=== PATIENT | female | born 1975 | race Two or more races ===

== ENCOUNTER 2024-11-29 09:38 | Outpatient (RCR) | payer MEDICAID, SELFPAY ==
--- NOTE | 2024-11-29 12:58 | CTCCONSULT_ITS ---
Patient: LAZARO ANGULO : 1975 MR#: [id number] Page 2 of 2 CONSULTATION NOTE DATE OF CONSULTATION: 11/29/2024 NAME: LAZARO ANGULO ACCOUNT: [id number] : 1975 AGE: 49 REFERRING PHYSICIAN: Dashawn Avendaño MD PRIMARY PHYSICIAN: REASON FOR VISIT: ONCOLOGY HISTORY: DIAGNOSIS: Iron deficiency anemia, unspecified [ICD10] D50.9 DATE OF DIAGNOSIS: 11/29/2024 STAGE/TNM: TREATMENT HISTORY: Care?Plan Start?Date Cycle Day Intent FERRlecit?she 11/29/2024 1 7 Palliative HISTORY OF PRESENT ILLNESS: 49-year-old female with heavy mennorhagia .periods are lasting for 2 weeks . She is feeling tired and lethargic . She have sriram loss .. OTHER MEDICAL HISTORY/CONDITIONS: anemia?bronchitis?chicken?pox bladder sling 2023 here 3 sections bilat tubal ligation FAMILY HISTORY: Children:?paternal??uncle??colon Cancer History:?paternal gandmother colon maternal grandmother ov SOCIAL HISTORY: Occupational?History:?unemployed Education?Level:?Completed 10th grade Marital?Status:? 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 Iron (ferrous sulfate) - 325 mg Twice a Day 2. Chataignier - 7.5 mg Twice a Day 3. Paxil - 20 mg Daily 4. Vitamin C - As directed Medications Last Reconciled by Rachel Terrazas LVN on 11/29/2024 ALLERGIES: No Known Drug Allergies REVIEW OF SYSTEMS: A complete 14-point review of systems was performed and is negative except as noted in interval history. PHYSICAL EXAMINATION: VITAL SIGNS: Temperature?99.4, B/P?134/71, Height?62?inches Weight?210?lbs PAIN: 7 - Between severe and very severe pain ECOG Performance Status: 1 - Symptomatic; ambulatory; restricted in strenuous activity GENERAL APPEARANCE: Appears well, in no apparent distress, appropriately interactive. HEENT: Normocephalic, no temporal wasting, normal conjunctiva, no scleral icterus, normal hearing, lips without lesions, neck normal range of motion. CARDIOVASCULAR: Not assessed. PULMONARY: Normal respiratory effort, no respiratory distress or use of accessory muscles, speaking in full sentences, no tachypnea. EXTREMITIES: No pedal edema or cyanosis. SKIN: Normal skin appearance. NEUROLOGIC: Alert and oriented x4. PSHYCHIATRIC: Appropriate affect, mood normal, behavior normal, intact thought and speech. LABORATORY DATA: I have personally reviewed and interpreted each of the patient?s relevant lab tests, abnormal findings are below: Date ASSESSMENT/PLAN: Iron deficiency anemia Iron studies are confirmed Will start on IV iron as patient has been on oral therapy and she is symptomatic and had iron studies also show deficiency Advised to do blood work before infusion Feracit ordered Consented after discussing side effects of IV therapy as well as benefits. Patient advised to hold oral iron as she is getting severely constipated with it. Gynecology dfollow up for menorrhagia ORDERS: Order # Description [id number] Comprehensive Metabolic Panel - 12 + CBC with Auto Diff [id number] Ferritin + Iron Panel + Vitamin B-12 + Folic Acid; Serum + Lactate Dehydrogenase (LDH) + Assay Of Haptoglobin Quant [id number] MD Follow Up 3 Months RETURN TO CLINIC: 3 months after completing infusions BILLING AND COMPLIANCE: I reviewed external records from providers outside my specialty as summarized above. I spent a total of 50 minutes on this patient?s care on the day of their visit excluding time spent related to any billed procedures. This time includes time spent with the patient as well as time spent documenting in the medical record, reviewing patients records and tests, obtaining history, placing orders, communicating with other healthcare professionals, counseling the patient, family or caregiver, and/or care coordination for the diagnoses above. Electronically Signed by: Dashawn Avendaño MD T: 12:56 PM CC: PCP: Referring: Dashawn Avendaño This document was completed utilizing speech recognition software. Grammatical errors, random word insertions, pronoun errors, and incomplete sentences are an occasional consequence of this system due to software limitations, ambient noise, and hardware issues. Any formal questions or concerns about the content, text or information contained within the body of this dictation should be directly addressed to the provider for clarification.
== END 2024-12-13 23:59 | disposition home or self-care (01) ==
LOC: SCTC 09:38
PROVIDERS: PCP Nurse Practitioner; Referring Provider Internal Medicine Hematology & Oncology; Visit Provider Internal Medicine Hematology & Oncology
DX: D50.9 Iron deficiency anemia, unspecified (principal)
CPT/HCPCS: 99213; G0463

== ENCOUNTER 2025-01-12 13:34 | Outpatient (RCR) | payer MEDICAID, SELFPAY | END 2025-01-12 23:59 | disposition home or self-care (01) | LOC: SCTC 13:34 | PROVIDERS: PCP Nurse Practitioner; Referring Provider Nurse Practitioner; Visit Provider Internal Medicine Hematology & Oncology | DX: D50.9 Iron deficiency anemia, unspecified (principal) | CPT/HCPCS: 96365; 96375; J2916; J2919; J3490; J7040; J7050 ==

== ENCOUNTER 2025-02-01 10:57 | Outpatient (AMB) | payer MEDICAID, SELFPAY ==
[2025-02-01 11:07] VITALS: BP 123/85; PULSE 92; RESP 18; TEMP 36.2; O2SAT 98; BMI 38.3
--- NOTE | 2025-02-01 11:07 | AMB.OBVISIT ---
Vital Signs 02/01/25 11:07 Height 1.57 m Height Method Stated Weight 95.056 kg Weight Measurement Method Standing Scale BMI 38.3 BP 123/85 H Blood Pressure Source Automatic Cuff Blood Pressure Location Left Upper Arm Position Sitting Respiration 18 Pulse 92 Pulse Source Monitor Temp 97.2 F Temp Source Oral Pulse Oximetry (%) 98 Oxygen Delivery Method Room Air Allergies/Home Meds Allergies & Medications Allergies No Known Allergies Allergy (Verified 02/01/25 11:09) Medication Reconciliation cyclobenzaprine 5 mg tablet 5 mg PO TID PRN Spasms 01/05/24 [History Confirmed 02/01/25] escitalopram oxalate 10 mg tablet 10 mg PO DAILY 01/05/24 [History Confirmed 02/01/25] hydrocodone 7.5 mg-acetaminophen 325 mg tablet 1 tab PO Q12H PRN Pain 01/05/24 [History Confirmed 02/01/25] ibuprofen 600 mg tablet 800 mg PO Q6H PRN Pain 01/05/24 [History Confirmed 02/01/25] pregabalin 75 mg capsule 75 mg PO BID 01/05/24 [History Confirmed 02/01/25] ciprofloxacin HCl 500 mg tablet (Cipro) 500 mg PO BID #14 tabs 03/02/24 [Rx Confirmed 02/01/25] hydrocodone 5 mg-acetaminophen 325 mg tablet 1 tab PO Q6H PRN pain #30 tabs 03/02/24 [Rx Confirmed 02/01/25] Intake Visit Data Collection New Patient or Established: Established Patient (seen at [facility] within 3 years) Reason for Visit:: HYST CONSULT 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 1. Little interest or pleasure in doing things: not at all 2. Feeling down, depressed, or hopeless: not at all Total score: 0 PHQ-9 3. Trouble falling or staying asleep, or sleeping too much: Not at all 4. Feeling tired or having little energy: Not at all 5. Poor appetite or overeating: Not at all 6. Feeling bad about yourself - or that you are a failure or have let yourself or your family down: Not at all 7. Trouble concentrating on things, such as reading the newspaper or watching television: Not at all 8. Moving or speaking so slowly that other people could have noticed? - Or the opposite - being so fidgety or restless that you have been moving around a lot more than usual: not at all 9. Thoughts that you would be better off or of hurting yourself in some way: Not at all Total score: 0 If you checked off any problems, how difficult have these problems made it for you to do your work, take care of things at home, or get along with other people?: not difficult at all Source: Developed by Drs. Indio Haskins, Loreta Crooks, Darryn Mcdonald and colleagues, with an educational jamal from [employer]. 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 Medical History Past Medical History: No Hx Neurological Disorders, No Hx Cardiac Disorders, No Hx Cancer, Yes Hx Blood Disorders, Yes Hx Anemia, Yes Hx Gastrointestinal Disorders, No Hx Renal Disease, No Hx Diabetes Mellitus Type 1, No Hx Diabetes Mellitus Type 2 and Yes Hx Tubal Ligation Office Procedures OB Clinic LOC & Office Proc's Nursing/Assessment Patient Status: Established Patient OB Clinic Nursing Assessment: Medication Reconciliation, Update PMH in EMR and Vital Signs OB Clinic Coordination of Care: Education Complex Pt/Fam, Consent,records obtained, informed consent, Education Simp Pt/Fam and Staff clarify orders Established Patient Charge Established Patient Point Assignment: 80 Established Patient Point Charge: EP Level 3 (80-115)
--- NOTE | 2025-02-01 11:54 | GYNCLNT_ITS ---
Vital Signs 02/01/25 11:07 02/01/25 11:59 Height 1.57 m Height Method Stated Weight 95.056 kg Weight Measurement Method Standing Scale BMI 38.3 BP 123/85 H 123/85 H Blood Pressure Source Automatic Cuff Blood Pressure Location Left Upper Arm Position Sitting Respiration 18 18 Pulse 92 92 Pulse Source Monitor Temp 97.2 F 97.2 F Temp Source Oral Pulse Oximetry (%) 98 98 Oxygen Delivery Method Room Air Allergies/Home Meds Allergies & Medications Allergies No Known Allergies Allergy (Verified 02/01/25 13:23) Medication Reconciliation cyclobenzaprine 5 mg tablet 5 mg PO TID PRN Spasms 01/05/24 [History Confirmed 03/02/24] escitalopram oxalate 10 mg tablet 10 mg PO DAILY 01/05/24 [History Confirmed 03/02/24] hydrocodone 7.5 mg-acetaminophen 325 mg tablet 1 tab PO Q12H PRN Pain 01/05/24 [History Confirmed 03/02/24] ibuprofen 600 mg tablet 800 mg PO Q6H PRN Pain 01/05/24 [History Confirmed 03/02/24] pregabalin 75 mg capsule 75 mg PO BID 01/05/24 [History Confirmed 03/02/24] ciprofloxacin HCl 500 mg tablet (Cipro) 500 mg PO BID #14 tabs 03/02/24 [Rx] hydrocodone 5 mg-acetaminophen 325 mg tablet 1 tab PO Q6H PRN pain #30 tabs 03/02/24 [Rx] Intake Visit Data Collection New Patient or Established: Established Patient (seen at [facility] within 3 years) Reason for Visit:: Hysterectomy consult for severe menorrhagia Seen by Clinical Staff ONLY (RN/MA): No Service Center Representative Required: No Do You Feel Safe at Home: Yes Authorities Contacted: N/A PCP or OBGYN visit in last 3 months: Yes Hx Now: No Are you currently on any form of Control: No Pain Present Currently: No Pain Scale Used: Ha-Masters/Numerical Pain scale:: 0 Smoking Status Smoking Status: Former smoker Transportation Job Titles history Transportation Job Titles History Menstrual regularity: regular Flow: normal Monthly: Yes Age at menarche: 14 Menopausal: No Currently sexually active: Yes 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 1. Little interest or pleasure in doing things: not at all 2. Feeling down, depressed, or hopeless: not at all Total score: 0 PHQ-9 3. Trouble falling or staying asleep, or sleeping too much: Not at all 4. Feeling tired or having little energy: Not at all 5. Poor appetite or overeating: Not at all 6. Feeling bad about yourself - or that you are a failure or have let yourself or your family down: Not at all 7. Trouble concentrating on things, such as reading the newspaper or watching television: Not at all 8. Moving or speaking so slowly that other people could have noticed? - Or the opposite - being so fidgety or restless that you have been moving around a lot more than usual: not at all 9. Thoughts that you would be better off or of hurting yourself in some way: Not at all Total score: 0 If you checked off any problems, how difficult have these problems made it for you to do your work, take care of things at home, or get along with other people?: not difficult at all Source: Developed by Drs. Indio Haskins, Loreta Crooks, Darryn Mcdonald and colleagues, with an educational jamal from [employer]. Depression screen completed yes Social History Living Situation History Marital Status: Lives With: Family Housing: Apartment Tobacco History Smoking Status: Former smoker Second Hand Smoke Exposure: No Alcohol History Alcohol Intake: Current Alcohol Intake Frequency: A Few Times a Week Domestic Abuse History Do You Feel Safe at Home: Yes History of Present Illness HPI Narrative Chief Complaint Hysterectomy consult for severe menorrhagia History of Present Illness Abbie Pagan is a 49-year-old female referred from [facility] for a hysterectomy consult due to severe menorrhagia. She has a complex medical history including chronic pelvic pain, excessive and frequent menstruation, and a history of bladder sling surgery for gross stress incontinence. The patient reports her last menstrual period was on January 14, 2024, with a usual 3-day flow and a 28-day cycle. She experienced menarche at age 10 and had her first child at 16. Ms. Pagan has undergone surgical sterilization in the past. Her current chief complaint is severe menorrhagia, which has led to her request for a hysterectomy. Dr. Greer, her insurance verification representative at [facility], has confirmed the need for this surgery. A pelvic ultrasound revealed an enlarged uterus with a 2.5 cm posterior leiomyo ma and a 0.6 cm dilated endocervical cyst, which may be contributing to her symptoms. The patient underwent bladder surgery by Dr. Tamayo last year, which successfully resolved her previous bladder issues. The proposed hysterectomy will involve removing the uterus and cervix while preserving the ovaries to avoid menopausal symptoms. The surgery is planned to use the same incision from previous surgeries. Ms. Pagan's extensive problem list includes various conditions that may impact her overall health and surgical candidacy, such as vitamin D deficiency, hyperlipidemia, iron deficiency, moderate major depression, generalized anxiety disorder, reactive airway disease, chronic respiratory failure, and chronic low back pain. She also has a history of cigarette smoking, which could affect her surgical risk and recovery. Obstetric History - GPAL: G1+ P1+ A0 L1+ - history: - First child born when patient was 16 years old Medical History - Moderate major depression - Generalized anxiety disorder - Dysthymia - Depressive disorder - Insomnia - Bacterial vaginosis - Chlamydial infection - Vitamin D deficiency - Hyperlipidemia - Iron deficiency - Bronchitis - Reactive airway disease - History of atelectasis - Chronic respiratory failure - Constipation - Chronic pelvic pain - Female alopecia - Lumbar spondylosis - Cervical spinal stenosis - Cervical radiculopathy - Chronic low back pain - History of flank pain Surgical History - Bladder sling surgery for gross stress incontinence - Bladder surgery by Dr. Tamayo last year - Surgical sterilization - (at least one) Social History - Substance Use: Current cigarette smoker - Obstetric History: Menarche at age 10, first child at age 16, status post surgical sterilization Review of Systems General: Positive for insomnia. Gastrointestinal: Positive for constipation. Genitourinary: Positive for excessive and frequent menstruation, menorrhagia, abnormal uterine bleeding, perimenopausal bleeding. Musculoskeletal: Positive for chronic low back pain. Psychiatric: Positive for depression, anxiety. Exam General Limitations: no limitations General Appearance: alert, in no apparent distress and comfortable Head Head exam: atraumatic and normocephalic Eye Eye exam: Present normal appearance, PERRL and EOMI Neck Neck exam: Present normal inspection and full ROM Chest Chest inspection: Present normal inspection and symmetric chest wall rise; Absent tenderness Resp Respiratory exam: Present normal lung sounds bilaterally; Absent respiratory distress Card Cardiovascular exam: Present regular rate and normal rhythm Abdominal Abdominal exam: Present soft and normal bowel sounds; Absent tenderness, guarding, rebound or rigidity Neuro Neurological exam: Present alert and oriented X3 Psych Psychiatric exam: Present normal affect Results Objective Imaging: - Pelvic ultrasound: - Enlarged uterus - 2.5 cm posterior leiomyoma - 0.6 cm dilated endocervical cyst Office Procedures OB Clinic LOC & Office Proc's Nursing/Assessment Patient Status: Established Patient OB Clinic Nursing Assessment: Medication Reconciliation, Update PMH in EMR and Vital Signs OB Clinic Coordination of Care: Education Complex Pt/Fam, Consent,records obtained, informed consent, Education Simp Pt/Fam and Staff clarify orders Established Patient Charge Established Patient Point Assignment: 80 Established Patient Point Charge: EP Level 3 (80-115) Assessment & Plan Diagnosis / Problem List (1) Abnormal uterine and vaginal bleeding, unspecified: Status: Acute (2) Intramural leiomyoma of uterus: Status: Acute (3) Excessive and frequent menstruation with irregular cycle: Status: Acute (4) Other specified noninflammatory disorders of cervix uteri: Status: Acute (5) Female stress incontinence: Status: Acute (6) Major depressive disorder, recurrent, moderate: Status: Acute (7) Generalized anxiety disorder: Status: Acute (8) Vitamin D deficiency, unspecified: Status: Acute (9) Hyperlipidemia, unspecified: Status: Acute (10) Unspecified asthma, uncomplicated: Status: Acute (11) Spondylosis without myelopathy or radiculopathy, lumbar region: Status: Acute (12) Personal history of nicotine dependence: Status: Acute Plan Abbie Pagan, 49-year-old female, referred for hysterectomy consult due to severe menorrhagia, with history of multiple gynecological and medical conditions. Severe menorrhagia Assessment: Patient presents with severe menorrhagia, requesting hysterectomy. Pelvic ultrasound revealed an enlarged uterus with a 2.5 cm posterior leiomyoma and a 0.6 cm dilated endocervical cyst. Dr. Greer from [facility] confirmed the need for surgery. Patient's last menstrual period was on January 14, 2024, with a usual 3-day flow and a 28-day cycle. The severity of symptoms and imaging findings support the decision for surgical intervention. Plan: - Perform hysterectomy (removal of uterus and cervix, preserving ovaries) - Utilize previous incision for the procedure - Schedule surgery within a month, pending insurance approvals - Obtain pre-surgery clearance from primary care physician - Order pre-operative EKG - Order diabetes test for anesthesia safety - Schedule pre-op appointment - Provide written instructions for surgery preparation - Advise one month of rest post-surgery, with gradual return to normal activities - Patient informed about preservation of ovaries to avoid menopausal symptoms - Informed consent obtained: discussed surgical approach, recovery expectations, and preservation of ovaries Multiple comorbidities Assessment: Patient has a complex medical history including bacterial vaginosis, chlamydial infection, vitamin D deficiency, hyperlipidemia, iron deficiency, moderate major depression, generalized anxiety disorder, dysthymia, depressive disorder, insomnia, bronchitis, reactive airway disease, history of atelectasis, chronic respiratory failure, constipation, chronic pelvic pain, female alopecia, lumbar spondylosis, cervical spinal stenosis, cervical radiculopathy, chronic low back pain, cigarette smoking, and history of flank pain. These conditions may impact surgical planning and post-operative care. Plan: - Coordinate with primary care physician (Hilaria) for pre-operative clearance and management of comorbidities - Encourage patient to ask questions and address concerns before surgery History of urinary incontinence Assessment: Patient has a history of gross stress incontinence, which was treated with a bladder sling procedure by Dr. Tamayo last year. The issue has reportedly resolved post-surgery. Plan: - Monitor for any recurrence of urinary symptoms post-hysterectomy
[2025-02-01 11:59] VITALS: BP 123/85; PULSE 92; RESP 18; TEMP 36.2; O2SAT 98
== END 2025-02-01 11:31 | disposition home or self-care (01) ==
LOC: HODSOBC 10:57
PROVIDERS: PCP Nurse Practitioner; Referring Provider Nurse Practitioner; Supervising Provider Obstetrics & Gynecology; Visit Provider Obstetrics & Gynecology
DX: D25.1 Intramural leiomyoma of uterus (principal); N92.0 Excessive and frequent menstruation with regular cycle; N88.8 Other specified noninflammatory disorders of cervix uteri; N39.3 Stress incontinence (female) (male); F33.8 Other recurrent depressive disorders; F41.1 Generalized anxiety disorder; E55.9 Vitamin D deficiency, unspecified; E78.5 Hyperlipidemia, unspecified; J45.909 Unspecified asthma, uncomplicated; M47.816 Spondylosis without myelopathy or radiculopathy, lumbar region; M48.02 Spinal stenosis, cervical region; M54.12 Radiculopathy, cervical region; Z98.890 Other specified postprocedural states; Z98.51 Tubal ligation status; Z87.891 Personal history of nicotine dependence; Z79.899 Other long term (current) drug therapy
CPT/HCPCS: 99213; G0463

== ENCOUNTER 2025-02-09 13:08 | Outpatient (RCR) | payer MEDICAID, SELFPAY | END 2025-02-12 23:59 | disposition home or self-care (01) | LOC: SCTC 13:08 | PROVIDERS: PCP Nurse Practitioner; Referring Provider Nurse Practitioner; Visit Provider Internal Medicine Hematology & Oncology | DX: D50.9 Iron deficiency anemia, unspecified (principal); N92.0 Excessive and frequent menstruation with regular cycle | CPT/HCPCS: 96365; 96375; J2916; J2919; J3490; J7040; J7050 ==

== ENCOUNTER 2025-02-23 13:19 | Outpatient (RCR) | payer MEDICAID, SELFPAY | END 2025-03-14 23:59 | disposition home or self-care (01) | LOC: SCTC 13:19 | PROVIDERS: PCP Nurse Practitioner; Referring Provider Nurse Practitioner Family; Visit Provider Nurse Practitioner Family | DX: D50.9 Iron deficiency anemia, unspecified (principal) | CPT/HCPCS: 96365; 96375; A4216; J2916; J2919; J3490; J7040; J7050 ==

== ENCOUNTER 2025-03-03 06:50 | Inpatient (IN) | payer MEDICAID, SELFPAY ==
[2025-03-02 09:16] VITALS: BMI 36.3
[2025-03-02 10:20] LABS: Basophils # (Auto) 0.1 Thou/mm3 (0.0-0.2); Basophils % (Auto) 1 % (0-2.5); Eosinophils # (Auto) 0.1 Thou/mm3 (0.0-0.5); Eosinophils % (Auto) 1 % (0-10); Hematocrit 43.1 % (36.0-46.0); Hemoglobin 13.8 g/dL (12.0-16.0); Immature Granulocytes % (Auto) 0 % (0-0); Immature Granulocytes Auto 0.03 Thou/mm3 (0.00-0.00); Lymphocytes # (Auto) 1.8 Thou/mm3 (1.0-4.8); Lymphocytes % (Auto) 25 % (10-50); Mean Corpuscular Volume 84 fL (80-100); Monocytes # (Auto) 0.5 Thou/mm3 (0.0-0.8); Monocytes % (Auto) 7 % (0-12); Neutrophils % (Auto) 67 % (37-80); Nucleated Red Blood Cell % 0 /100 WBC (0); Platelet Count 235 Thou/mm3 (140-440); RDW Standard Deviation 63.7 fL (36.4-46.3); Red Blood Count 5.11 Miln/mm3 (4.00-5.20); White Blood Count 7.5 Thou/mm3 (3.6-11.0)
[2025-03-02 10:26] LABS: HCG,Qualitative Serum Negative
[2025-03-02 10:32] LABS: Alanine Aminotransferase 17 U/L (10-49); Albumin, Serum 4.5 gm/dL (3.5-5.0); Alkaline Phosphatase 85 U/L (46-116); Anion Gap 7 (7-16); Aspartate Amino Transferase 18 U/L (0-34); BUN/Creatinine Ratio 10 Ratio (12-20); Bilirubin,Total 0.3 mg/dL (0.3-1.2); Blood Urea Nitrogen 7 mg/dL (9-23); Calcium 9.4 mg/dL (8.3-10.6); Calcium (Corrected) 9.4 mg/dL (8.5-10.1); Carbon Dioxide 26.3 mMol/L (20.0-31.0); Chloride 106 mMol/L (98-107); Creatinine (Component) 0.7 mg/dL (0.6-1.3); Estimated Creatinine Clearance 111.8 mL/min (>60); Globulin 2.3 gm/dL (2.3-3.5); Glucose 93 mg/dL (74-106); Osmolality,Calculated 275 (275-295); Potassium 4.1 mMol/L (3.4-5.1); Sodium 139 mMol/L (136-145); Total Protein 6.8 gm/dL (5.7-8.2); eGFR > 60 See Note
[2025-03-03] VITALS (19 sets, daily range): BP systolic 103–159; BP diastolic 52–97; PULSE 66–89; RESP 12–22; TEMP 36.2–36.9; O2SAT 93–99; BMI 37.1; BMI 38.6
--- NOTE | 2025-03-03 11:08 | PD.GYNPROC ---
Operative Note - FINANCIAL COACH Procedure Date of procedure: 03/03/25 Procedure Performed: Total abdominal hysterectomy and bilateral salpingectomy Indication: 49-year-old with menorrhagia and leiomyoma of uterus Anesthesia type: General Procedure description: Informed consent was obtained and the patient was taken to the operating room.? Identity was confirmed by double identifiers and she was placed on the operating table.? General anesthesia was administered and the patient was secured and positioned in the supine position.? The abdomen and perineum were prepped in the usual sterile fashion, a Goldberg catheter was placed to continuous drainage and sterile drapes were applied.? A timeout procedure was completed. A Pfannenstiel skin incision was made with a scalpel and incision was carried down through the subcutaneous fat up to the rectus fascia.? Rectus fascia was incised on either side of the midline and the fascial incisions were extended bilaterally using Burgess scissors.? The rectus fascia was now grasped using a pair of Pieter's clamps and dissected off the anterior surface of the rectus muscle.? The same procedure was repeated on the inferior aspect.? The rectus bellies were now in the midline and the peritoneum was identified and entered bluntly.? The peritoneal opening was gently stretched to create adequate access into the pelvic cavity.? Kojo O-ring retractor was placed and the bowel was packed out of the operative field.? The uterus was grasped using a double-tooth tenaculum.? Significant amount of bladder adhesion was noted and about 40 minutes of dissection was performed to divide the bladder adhesion to gain access to the uterovesical peritoneum.? The uterus was placed under traction and dissection was started on the right side.? The utero-ovarian ligament was was divided.? The fallopian tube was dissected off separately.? The round ligament was now divided and the anterior and posterior leaves of the broad ligament was .? The anterior leaf was dissected up to the bladder reflection to create the bladder flap.? The posterior leaf was dissected down all the way to the uterosacral ligament.? Subsequent bites were taken down the size of the uterus until the uterine artery was skeletonized, occluded and divided and the cervix was reached.? The same procedure was repeated on the contralateral side.? Once the level of the cervix was reached a pair of Manda clamps were placed across the cervix and the uterus was amputated and handed over for pathological exam.? The vaginal angles were tagged using a pair of 0 Vicryl sutures.? The vaginal cuff was closed using 0 Vicryl in a running fashion.? The angles were tied together to reinforce the uterosacral ligaments.? Multiple localized areas of hemorrhage were noted and [id number] sutures were applied to compress the bleeding points using 3-0 and 2-0 Vicryl. Eventually the cuff was copiously irrigated and adequate hemostasis was noted.? A layer of Surgicel was placed for adequate hemostasis.? All instruments were now withdrawn.? The bowel packing was removed.? The Kojo retractor was removed.?The peritoneum was now closed using 2-0 Vicryl, the rectus muscles were reapproximated using 3-0 Vicryl.? The rectus fascia was closed using 0 Vicryl in a running fashion.? The subcutaneous layer was copiously irrigated.? The subcutaneous fat was closed using 3 0 plain and the skin was closed using 4-0 Monocryl.? The skin was thoroughly cleaned and a sterile pressure dressing was applied.? The patient was undraped, general anesthesia was reversed and she was transferred to the recovery room in a stable and awake condition. Patient tolerated the entire procedure well.? No acute complications were encountered during the procedure.? All instrument, sponge and lap counts were correct x2 Estimated blood loss (ml): 200 Complications: none Surgical staff Operation Date: 03/03/25 09:00 Case Staff Anesthesiologist: Amadeo Cruz RNelectric locomotive crane operator: Prakash Stevenson Diagnosis Discharge Diagnosis (1) Intramural leiomyoma of uterus: Status: Acute (2) Abnormal uterine and vaginal bleeding, unspecified: Status: Acute (3) Personal history of nicotine dependence: Status: Acute (4) Unspecified asthma, uncomplicated: Status: Acute (5) Generalized anxiety disorder: Status: Acute Problem List Completed Was Problem List Reviewed/Reconciled?: Yes
[2025-03-03] MEDS: PIPER/TAZO 3.375 GM PREMIX 3.375 GM/50 ML BAG IV ×2 (11:51→20:13)
[2025-03-03] MEDS: SODIUM CHLORIDE 0.9% 1000 ML 1,000 ML 200 ML IV ×3 (11:52→22:10)
[2025-03-03] MEDS: KETOROLAC INJ 30 MG/ML VIAL 15 MG IVP (11:55)
[2025-03-03] MEDS: HYDROmorphone INJ 2 MG/ML VIAL 0.5 MG IVP ×4 (11:57→12:38)
[2025-03-03] MEDS: MIDAZOLAM INJ 1 MG/ML VIAL 2 ML IVP (12:44)
--- NOTE | 2025-03-03 12:54 | SUR.PHASEI ---
pt lying in bed with eyes closed, breathing unlabored, dressing to abdomen clean, dry, and intact, report from Gilles PA
--- NOTE | 2025-03-03 13:25 | SUR.PHASEI ---
report to Gilles PA
[2025-03-03] MEDS: HYDROmorphone 1 MG/ML PCA SYRINGE 30ML PCA (13:41)
--- NOTE | 2025-03-03 14:10 | SUR.PHASEI ---
pt asleep but responds to voice, breathing unlabored on 2l nc. v/s stable. pt dressing to abd cdi. griggs catheter in place. report called to Patsy PA. pt will be transferred to room at this time.
[2025-03-03] MEDS: Milk Of Magnesia Susp 30 ML UDC PO (15:46)
[2025-03-03] MEDS: ACETAMINOPHEN IVPB 1,000 MG/100 ML VIAL 250 MG IV ×2 (17:16→23:45)
[2025-03-03] MEDS: PREGABALIN 75 MG CAPSULE PO (20:18)
[2025-03-04] VITALS (8 sets, daily range): BP systolic 105–144; BP diastolic 62–80; PULSE 61–110; RESP 16–21; TEMP 36.1–36.6; O2SAT 93–96
[2025-03-04] MEDS: PIPER/TAZO 3.375 GM PREMIX 3.375 GM/50 ML BAG IV (02:42)
[2025-03-04] MEDS: SODIUM CHLORIDE 0.9% 1000 ML 1,000 ML 200 ML IV (02:58)
[2025-03-04] MEDS: ACETAMINOPHEN IVPB 1,000 MG/100 ML VIAL 250 MG IV ×2 (05:26→11:02)
[2025-03-04 05:50] LABS: Basophils % (Auto) 0 % (0-2.5); Eosinophils % (Auto) 0 % (0-10); Hematocrit 36.3 % (36.0-46.0); Hemoglobin 11.8 g/dL (12.0-16.0); Immature Granulocytes % (Auto) 1 % (0-0); Immature Granulocytes Auto 0.07 Thou/mm3 (0.00-0.00); Lymphocytes # (Auto) 0.8 Thou/mm3 (1.0-4.8); Lymphocytes % (Auto) 7 % (10-50); Mean Corpuscular HGB Conc 32.5 g/dl (31.0-37.0); Mean Corpuscular Hemoglobin 27.8 pg (25.0-35.0); Mean Corpuscular Volume 85 fL (80-100); Monocytes # (Auto) 0.8 Thou/mm3 (0.0-0.8); Monocytes % (Auto) 6 % (0-12); Neutrophils # (Auto) 10.2 Thou/mm3 (1.8-7.7); Neutrophils % (Auto) 86 % (37-80); Nucleated Red Blood Cell % 0 /100 WBC (0); Platelet Count 211 Thou/mm3 (140-440); RDW Standard Deviation 64.7 fL (36.4-46.3); Red Blood Count 4.25 Miln/mm3 (4.00-5.20); White Blood Count 11.8 Thou/mm3 (3.6-11.0)
[2025-03-04 06:03] LABS: Anion Gap 6 (7-16); BUN/Creatinine Ratio 9 Ratio (12-20); Blood Urea Nitrogen 7 mg/dL (9-23); Calcium 8.3 mg/dL (8.3-10.6); Carbon Dioxide 21.8 mMol/L (20.0-31.0); Chloride 109 mMol/L (98-107); Creatinine (Component) 0.8 mg/dL (0.6-1.3); Estimated Creatinine Clearance 93.9 mL/min (>60); Glucose 147 mg/dL (74-106); Osmolality,Calculated 274 (275-295); Potassium 4.4 mMol/L (3.4-5.1); Sodium 137 mMol/L (136-145); eGFR > 60 See Note
[2025-03-04] MEDS: PREGABALIN 75 MG CAPSULE PO (08:11)
[2025-03-04] MEDS: DOCUSATE SOD 100 MG CAPSULE PO (08:12)
[2025-03-04] MEDS: PARoxetine HCL 10 MG TABLET 30 MG PO (08:12)
--- NOTE | 2025-03-04 08:39 | ESPR_ITS ---
Documentation for date of: 03/04/25 LIBRARY CIRCULATION ASSISTANT Subjective Subjective Interval history: Patient seen at bedside. Pain is well-controlled on the current regimen. Urine output adequate and Goldberg catheter has been removed and she has void No incisional complaints, no chest pain or shortness of Exam Vital Signs Temp Pulse Resp BP Pulse Ox O2 Del Method O2 Flow Rate 97.1 F 70 16 105/62 96 Nasal Cannula 1 03/04/25 07:57 03/04/25 07:57 03/04/25 07:57 03/04/25 07:57 03/04/25 07:57 03/04/25 07:57 03/04/25 07:57 Constitutional Constitutional: no acute distress Routine HEENT Exam Head: Present normocephalic and atraumatic Eye: Present EOMI and PERRL ENT: Present mucous membranes moist Routine Neck Exam Neck: Present supple and trachea midline Routine Respiratory Exam Respiratory: Present chest non-tender, lungs clear, normal breath sounds and no resp distress Routine Cardiovascular Exam Cardiovascular: Present RRR Routine Abdominal Exam Abdominal: Present soft and normoactive bowel sounds Routine Extremities Exam Extremities: Present full ROM Routine Skin Exam Skin: Present intact and dry Routine Neurological Exam Neurological: Present alert, oriented X3 and CN II-XII intact Routine Psychiatric Exam Psychiatric: Present normal affect and normal thought process Urinary Catheter Management Cath placed during this visit: yes, but has since been removed by the nurse Removal date: 03/04/25 Removal time: 05:37 LIBRARY CIRCULATION ASSISTANT - PN: Obj Data Labs 03/04/25 04:46 03/04/25 04:46 Labs: Laboratory Results - last 24 hr 03/04/25 04:46 WBC 11.8 H D RBC 4.25 Hgb 11.8 L D Hct 36.3 MCV 85 MCH 27.8 MCHC 32.5 RDW Std Deviation 64.7 H Plt Count 211 Neut % (Auto) 86 H Lymph % (Auto) 7 L Antelope % (Auto) 6 Eos % (Auto) 0 Baso % (Auto) 0 Neut # (Auto) 10.2 H Lymph # (Auto) 0.8 L Antelope # (Auto) 0.8 Eos # (Auto) 0.0 Baso # (Auto) 0.0 Immature Gran # (Auto) 0.07 H Absolute Nucleated RBC 0.00 Immature Gran % 1 H Nucleated RBC % 0 Sodium 137 Potassium 4.4 Chloride 109 H Carbon Dioxide 21.8 Anion Gap 6 L BUN 7 L Creatinine 0.8 Estim Creat Clear Calc 93.9 eGFR > 60 BUN/Creatinine Ratio 9 L Glucose 147 H D Calculated Osmolality 274 L Calcium 8.3 LIBRARY CIRCULATION ASSISTANT - A/P Assessment and plan (1) Intramural leiomyoma of uterus: Status: Acute Assessment and plan: Patient is postoperative day #1 status post total abdominal hysterectomy aided by difficult dissection due to her previous history of scar Will encourage out of bed and ambulation Dressing removed by myself and incision is clean dry and intact and healing appropriately Possible discharge home later today or early tomorrow (2) Abnormal uterine and vaginal bleeding, unspecified: Status: Acute (3) Personal history of nicotine dependence: Status: Acute (4) Unspecified asthma, uncomplicated: Status: Acute (5) Generalized anxiety disorder: Status: Acute Postoperative Procedures: Procedures Operation Date: 03/03/25 09:00 Actual Procedure Side Surgeon p Total Abdominal Hysterectomy with bilateral salpingectomy Bilateral Giovanny Crowe MD Time Spent With Patient Time: Total time spent is greater than 50% in coordination of care (as documented) at patient's floor/unit and/or counseling patient: Time with patient: less than 15 minutes
--- NOTE | 2025-03-04 09:34 | CHAP ---
Patient expressed gratitude for visit and prayer
--- NOTE | 2025-03-04 10:27 | PD.ANESPROG ---
Documentation for date of: 03/04/25 ANESTHESIA NOTE: Patient had GETA for MAN yesterday. I just saw her briefly in 365 and she was alert and calm, smiling, seating up in chair, denied any problems from anesthesia. Amadeo Cruz MD Anesthesia Progress Note Progress Note Most recent Vital Signs: Last Vital Signs Temp 97.1 F 03/04/25 07:57 Pulse 70 03/04/25 07:57 Resp 16 03/04/25 07:57 BP 105/62 03/04/25 07:57 Pulse Ox 96 03/04/25 07:57 O2 Del Method Nasal Cannula 03/04/25 07:57 O2 Flow Rate 1 03/04/25 07:57
--- NOTE | 2025-03-04 11:00 | PC.SS ---
SS met with pt at to complete initial, pt expressed concern with her prescriptions being sent to the [facility] in [place], pt reports she does not use that pharmacy she uses [facility] #[phone] Address: [address] [place] [address]. SS informed RNAda if she can update Dr. Crowe to change and resubmit to correct pharmacy
--- NOTE | 2025-03-04 11:32 | PC.SS ---
Abbie Pagan is a 49-year-old female admitted to Med Surg for MAN [id number]. SS conducted bedside contact with the patient to complete initial assessment and to discuss discharge planning. Role and reason explained. Patient confirmed demographic information. Patient identifies Life partner Tab Sal [phone] as her surrogate decision maker. Pt states she is able to complete all ADL?s independently. No need for any source of DME. Pts PCP is Dr. Chery. Pharmacy of choice is [facility] [address] [place] [address] #[phone] . Discharge options discussed and the pt wishes to return home.? Family will provide transportation upon DC. No further intervention required at this time, social services counselor would be available to address any further concerns. DC Plan: Home Contact: Tab JIMENEZ Address: Confirmed on face sheet PCP: Miri
--- NOTE | 2025-03-04 12:58 | PC.PT ---
PT eval only. Patient is xI with mobility. Patient is safe to ambulate to the bathroom and in the halls with no AD and no staff assist. RN made aware.
[2025-03-04] MEDS: HYDROmorphone INJ 2 MG/ML VIAL IVP (13:11)
--- NOTE | 2025-03-04 14:49 | PC.SS ---
Rounding: Poss DC late today or tomorrow per Dr. Crowe, encourage ambulation
== END 2025-03-04 16:25 | disposition home or self-care (01) | DRG 519 ==
LOC: S2W1 11:12 → S3NX 14:20
PROVIDERS: Admitting Provider Obstetrics & Gynecology; PCP Family Medicine; Visit Provider Obstetrics & Gynecology
PROC: 0UT90ZZ Resection of Uterus, Open Approach (ICD-10-PCS; principal; 2025-03-03 09:00)
DX: D25.1 Intramural leiomyoma of uterus (principal); F41.1 Generalized anxiety disorder; J45.909 Unspecified asthma, uncomplicated; N92.0 Excessive and frequent menstruation with regular cycle; Z87.891 Personal history of nicotine dependence; Z98.891 History of uterine scar from previous surgery
CPT/HCPCS: 36415; 80048; 80053; 84703; 85025; 86850; 86900; 86901; 97161; A4217; A4649; J0131; J0690; J1100; J1171; J1885; J2250; J2405; J2543; J2704; J2710; J3010; J3490; J7030; A9270; J1596

== ENCOUNTER 2025-03-11 13:43 | Outpatient (AMB) | payer MEDICAID, SELFPAY ==
--- NOTE | 2025-03-11 14:02 | GYNCLNT_ITS ---
Vital Signs 03/11/25 14:07 Weight 95.935 kg Weight Measurement Method Standing Scale BP 132/83 H Blood Pressure Source Automatic Cuff Blood Pressure Location Left Upper Arm Position Sitting Respiration 18 Pulse 77 Pulse Source Monitor Temp 97.2 F Temp Source Oral Pulse Oximetry (%) 98 Oxygen Delivery Method Room Air Allergies/Home Meds Allergies & Medications Allergies acetaminophen (From Tylenol-Codeine #3) Allergy (Verified 03/11/25 14:07) Rash codeine (From Tylenol-Codeine #3) Allergy (Verified 03/11/25 14:07) Rash Medication Reconciliation cyclobenzaprine 5 mg tablet 5 mg PO TID PRN Spasms 01/05/24 [History Confirmed 03/11/25] pregabalin 75 mg capsule 75 mg PO BID 01/05/24 [History Confirmed 03/11/25] ALBUTEROL NEBULIZER 2.5 mg INH QID 03/02/25 [History Confirmed 03/11/25] albuterol sulfate 90 mcg/actuation breath activated powder inhaler 2 inh inhalation QID PRN shortness of breath or wheezing 03/02/25 [History Confirmed 03/11/25] budesonide-formoterol HFA 80 mcg-4.5 mcg/actuation aerosol inhaler (Breyna) 2 inh inhalation BID 03/02/25 [History Confirmed 03/11/25] paroxetine HCl 30 mg tablet 30 mg PO QDAY 03/02/25 [History Confirmed 03/11/25] docusate sodium 100 mg capsule (Stool Softener) 100 mg PO QDAY 30 days #30 caps 03/04/25 [Rx Confirmed 03/11/25] ibuprofen 600 mg tablet 600 mg PO Q6H PRN fever or pain 10 days #40 tabs 03/04/25 [Rx Confirmed 03/11/25] pantoprazole 40 mg tablet,delayed release 40 mg PO QDAY 30 days #30 tabs 03/04/25 [Rx Confirmed 03/11/25] clindamycin phosphate 1 % lotion 1 applic topical BID 5 days #60 mL 03/11/25 [Rx] hydromorphone 2 mg tablet (Dilaudid) 2 mg PO Q4H PRN pain 7 days #28 tabs 03/11/25 [Rx] Intake Visit Data Collection New Patient or Established: Established Patient (seen at [facility] within 3 years) Reason for Visit:: HYSTERECTOMY FOLLOW UP Seen by Clinical Staff ONLY (RN/MA): No Track Rider Required: No Do You Feel Safe at Home: Yes Authorities Contacted: N/A PCP or OBGYN visit in last 3 months: Yes Date of Last PCP or OBGYN visit: 03/04/25 Hx Now: No Are you currently on any form of Control: No Last menstrual period: 02/24/25 Pain Present Currently: No Pain Scale Used: Ha-Masters/Numerical Pain scale:: 0 Smoking Status Smoking Status: Current every day smoker Cessation Counseling Provided: LAZARO was advised that quitting smoking is the single most important factor to protect the health of themselves and their family. Discussed the benefits of quitting smoking with patient. Encouraged patient to quit smoking and provided Cessation assistance materials and resources. Tobacco Use: Cigarette Years smoked: 10 Are you interested in Quitting?: Yes Would you like additional Smoking Cessation Counseling?: Yes Exercise Science Instructor history Exercise Science Instructor History Menstrual regularity: regular Flow: normal Monthly: Yes Age at menarche: 12 Menopausal: No Currently sexually active: No LIBRARY MEDIA ASSISTANT: Past Medical History Past Medical History: No Hx Neurological Disorders, No Hx Cardiac Disorders, No Hx Cancer, Yes Hx Blood Disorders, Yes Hx Anemia, Yes Hx Gastrointestinal Disorders, No Hx Renal Disease, No Hx Diabetes Mellitus Type 1, No Hx Diabetes Mellitus Type 2 and Yes Hx Tubal Ligation Questionnaires Covid-19 Vaccine Questionnaire Has patient been vacinated for Covid-19 Have you been vacinated for Covid-19: Yes PHQ-9 PHQ-2 Over the last 2 weeks, how often have you been bothered by any of the following problems? 1. Little interest or pleasure in doing things: not at all 2. Feeling down, depressed, or hopeless: not at all Total score: 0 PHQ-9 3. Trouble falling or staying asleep, or sleeping too much: Not at all 4. Feeling tired or having little energy: Not at all 5. Poor appetite or overeating: Not at all 6. Feeling bad about yourself - or that you are a failure or have let yourself or your family down: Not at all 7. Trouble concentrating on things, such as reading the newspaper or watching te levision: Not at all 8. Moving or speaking so slowly that other people could have noticed? - Or the opposite - being so fidgety or restless that you have been moving around a lot more than usual: not at all 9. Thoughts that you would be better off or of hurting yourself in some way: Not at all Total score: 0 If you checked off any problems, how difficult have these problems made it for you to do your work, take care of things at home, or get along with other people?: not difficult at all Source: Developed by Drs. Indio Haskins, Loreta Crooks, Darryn Mcdonald and colleagues, with an educational jamal from [employer]. Depression screen completed yes Social History Living Situation History Lives With: Family Housing: House Tobacco History Smoking Status: Current every day smoker Packs per Day: 0.25 Second Hand Smoke Exposure: Yes Alcohol History Alcohol Intake: Current Alcohol Intake Frequency: holidays/special occasions only Domestic Abuse History Do You Feel Safe at Home: Yes History of Present Illness HPI Narrative Patient reports feeling a bump in her abdomen that was not present before. She describes pain when the area is touched. The patient mentions she has been using the post-operative binder a little bit but not consistently. She also reports having diarrhea ( the runs ) and notes that she finished her prescribed antibiotics today. The patient states she is out of pain medication. She indicates she hasn't been very active since the surgery. She mentions experiencing soreness when walking. The patient completed her prescribed course of oral antibiotics on the day of this visit. She is a 49-year-old female who is one week and one day status post total abdominal hysterectomy that was complicated by difficult dissection due to previous surgical scars. The patient's chief complaint is feeling a bump in her abdominal area, which she first noticed yesterday. The patient has a caregiver or family member assisting with post-operative care. Reports experiencing diarrhea after initially having constipation from pain medicines. She has been taking a stool softener. Review of Systems Review of Systems Systems Reviewed: All systems reviewed, normal except as documented Exam General General Appearance: alert, in no apparent distress and healthy appearing Head Head exam: atraumatic Neck Neck exam: Present normal inspection and trachea midline Chest Chest inspection: Present normal inspection and symmetric chest wall rise External exam: Present normal external exam; Absent tenderness Neuro Neurological exam: Present oriented X3 Psych Psychiatric exam: Present normal affect and normal mood Office Procedures OB Clinic LOC & Office Proc's Nursing/Assessment Patient Status: Established Patient OB Clinic Nursing Assessment: Medication Reconciliation, Update PMH in EMR and Vital Signs OB Clinic Coordination of Care: Education Complex Pt/Fam, Consent,records obtained, informed consent, Lab and Imaging orders and Staff clarify orders Established Patient Charge Established Patient Point Assignment: 80 Established Patient Point Charge: EP Level 3 (80-115) Assessment & Plan Diagnosis / Problem List (1) Superficial postoperative wound infection: Status: Acute Plan Post-operative Complication: Palpable Suture Plan: - Reassure patient about normalcy of palpable sutures during healing. - Continue use of abdominal binder for compression. - Prescribe topical antibiotic cream for surgical site. - Discontinue oral stool softeners. - Refill pain medication prescription. - Schedule follow-up appointment in 2 weeks. - Advise to call if issues arise before next appointment. - Encourage gradual increase in activity after one more week. Post-operative Care Plan: - Switch from oral to topical antibiotic cream for surgical site. - Refill pain medication prescription. - Emphasize proper use of abdominal binder. - Discontinue stool softeners. - Encourage gradual increase in activity after one more week. - Schedule follow-up appointment in 2 weeks. - Advise to call if issues arise before next appointment.
[2025-03-11 14:07] VITALS: BP 132/83; PULSE 77; RESP 18; TEMP 36.2; O2SAT 98
== END 2025-03-11 14:40 | disposition home or self-care (01) ==
LOC: HODSOBC 13:43
PROVIDERS: PCP Family Medicine; Referring Provider Family Medicine; Supervising Provider Obstetrics & Gynecology; Visit Provider Obstetrics & Gynecology
DX: T81.41XA Infection following a procedure, superficial incisional surgical site, initial encounter (principal); Z90.710 Acquired absence of both cervix and uterus; Y83.6 Removal of other organ (partial) (total) as the cause of abnormal reaction of the patient, or of later complication, without mention of misadventure at the time of the procedure
CPT/HCPCS: 99213; G0463

== ENCOUNTER 2025-03-23 09:12 | Outpatient (AMB) | payer MEDICAID, SELFPAY ==
[2025-03-23 09:27] VITALS: BP 119/82; PULSE 78; RESP 18; TEMP 36.6; O2SAT 98; BMI 38.3
--- NOTE | 2025-03-23 09:27 | AMB.GYNCLNOT ---
Vital Signs 03/23/25 09:27 Height 1.57 m Height Method Stated Weight 94.517 kg Weight Measurement Method Standing Scale BMI 38.3 BP 119/82 Blood Pressure Source Automatic Cuff Blood Pressure Location Right Upper Arm Position Sitting Respiration 18 Pulse 78 Pulse Source Monitor Temp 97.8 F Temp Source Temporal Artery Scan Pulse Oximetry (%) 98 Oxygen Delivery Method Room Air Allergies/Home Meds Allergies & Medications Allergies acetaminophen (From Tylenol-Codeine #3) Allergy (Verified 03/23/25 09:29) Rash codeine (From Tylenol-Codeine #3) Allergy (Verified 03/23/25 09:29) Rash Medication Reconciliation cyclobenzaprine 5 mg tablet 5 mg PO TID PRN Spasms 01/05/24 [History Confirmed 03/23/25] pregabalin 75 mg capsule 75 mg PO BID 01/05/24 [History Confirmed 03/23/25] ALBUTEROL NEBULIZER 2.5 mg INH QID 03/02/25 [History Confirmed 03/23/25] albuterol sulfate 90 mcg/actuation breath activated powder inhaler 2 inh inhalation QID PRN shortness of breath or wheezing 03/02/25 [History Confirmed 03/23/25] budesonide-formoterol HFA 80 mcg-4.5 mcg/actuation aerosol inhaler (Breyna) 2 inh inhalation BID 03/02/25 [History Confirmed 03/23/25] paroxetine HCl 30 mg tablet 30 mg PO QDAY 03/02/25 [History Confirmed 03/23/25] docusate sodium 100 mg capsule (Stool Softener) 100 mg PO QDAY 30 days #30 caps 03/04/25 [Rx Confirmed 03/23/25] pantoprazole 40 mg tablet,delayed release 40 mg PO QDAY 30 days #30 tabs 03/04/25 [Rx Confirmed 03/23/25] Intake Visit Data Collection New Patient or Established: Established Patient (seen at [facility] within 3 years) Reason for Visit:: POST OP FOLLOW UP ON HYSTERECTOMY Seen by Clinical Staff ONLY (RN/MA): No Sales Account Manager Required: No Do You Feel Safe at Home: Yes Authorities Contacted: N/A PCP or OBGYN visit in last 3 months: Yes Date of Last PCP or OBGYN visit: 03/11/25 Hx Now: No Are you currently on any form of Control: No Pain Present Currently: Yes Pain Location: Abdomen Pain Scale Used: Ha-Masters/Numerical Pain scale:: 6 Smoking Status Smoking Status: Current every day smoker Cessation Counseling Provided: LAZARO was advised that quitting smoking is the single most important factor to protect the health of themselves and their family. Discussed the benefits of quitting smoking with patient. Encouraged patient to quit smoking and provided Cessation assistance materials and resources. 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 1. Little interest or pleasure in doing things: not at all 2. Feeling down, depressed, or hopeless: not at all Total score: 0 PHQ-9 3. Trouble falling or staying asleep, or sleeping too much: Not at all 4. Feeling tired or having little energy: Not at all 5. Poor appetite or overeating: Not at all 6. Feeling bad about yourself - or that you are a failure or have let yourself or your family down: Not at all 7. Trouble concentrating on things, such as reading the newspaper or watching television: Not at all 8. Moving or speaking so slowly that other people could have noticed? - Or the opposite - being so fidgety or restless that you have been moving around a lot more than usual: not at all 9. Thoughts that you would be better off or of hurting yourself in some way: Not at all Total score: 0 If you checked off any problems, how difficult have these problems made it for you to do your work, take care of things at home, or get along with other people?: not difficult at all Source: Developed by Drs. Indio Haskins, Loreta Crooks, Darryn Mcdonald and colleagues, with an educational jamal from [email or web address]. Depression screen completed yes Social History Living Situation History Marital Status: Lives With: Family Housing: House Tobacco History Smoking Status: Current every day smoker Packs per Day: 0.25 Second Hand Smoke Exposure: Yes Alcohol History Alcohol Intake: Current Alcohol Intake Frequency: holidays/special occasions only Domestic Abuse History Do You Feel Safe at Home: Yes History of Present Illness HPI Narrative Patient reports improvement in loose motions previously experienced. She continues to experience soreness on her left side, specifically in an area where she can feel a knot in the stitch. She has been using hot packs for relief. Patient inquired about vaginal moisture post-surgery and was informed that normal discharge would continue, but there should be no bleeding once healing is complete. She is a 49-year-old female who is 3 weeks status post total abdominal hysterectomy performed on March 03, 2025. The surgery was complicated by extensive intraperitoneal adhesions. She was previously seen on March 11, 2025, for a postoperative visit due to concerns about thickening towards the upper end of the incision with palpable sutures. At that time, she was placed on prophylactic antibiotics and encouraged to increase her activity levels. The patient drove herself from [place] for this appointment, indicating an improvement in her mobility and independence since the surgery. She has been following postoperative instructions, including the use of warm pads on her stomach when resting in a recliner. Reports normal vaginal discharge, but no vaginal bleeding. Exam Narrative Physical exam: - Abdomen: - Incision site examined. Upper end of incision shows thickening with palpable sutures. - Left side of abdomen is sore and tender to palpation. - Palpable knot in the stitch noted on the left side. - Overall, abdomen is softer compared to previous examination. - Previous cord-like structure felt during last visit is beginning to dissolve. General General Appearance: alert, in no apparent distress and healthy appearing Head Head exam: atraumatic Neck Neck exam: Present normal inspection and trachea midline Chest Chest inspection: Present normal inspection and symmetric chest wall rise External exam: Present normal external exam; Absent tenderness Neuro Neurological exam: Present oriented X3 Psych Psychiatric exam: Present normal affect and normal mood Office Procedures OB Clinic LOC & Office Proc's Nursing/Assessment Patient Status: Established Patient OB Clinic Nursing Assessment: Medication Reconciliation, Update PMH in EMR and Vital Signs OB Clinic Coordination of Care: Complex Care and Chronic Disease 1-5, Consent,records obtained, informed consent, Education Simp Pt/Fam and Staff clarify orders Established Patient Charge Established Patient Point Assignment: 85 Established Patient Point Charge: EP Level 3 (80-115) Assessment & Plan Diagnosis / Problem List (1) Superficial postoperative wound infection: Status: Acute (2) Personal history of nicotine dependence: Status: Acute (3) Intramural leiomyoma of uterus: Status: Acute (4) Encounter for surgical aftercare following surgery on the genitourinary system: Status: Acute Plan Status post total abdominal hysterectomy: - Surgery performed on March 03, 2025, complicated by extensive intraperitoneal adhesions. - Significant improvement in incision site since previous visit on March 11, 2025. - Palpable cord-like structure beginning to dissolve. - Persistent soreness on left side of incision, corresponding to palpable knot in stitch. - Gastrointestinal symptoms (loose stools) have improved. Plan: - Continue application of warm compresses to incision site at least once daily. - Gradually increase activity levels as tolerated. - Maintain restriction on vaginal penetration for 3 more weeks. - Follow-up appointment in 3 weeks for 6-week postoperative visit. ? Internal examination to be performed to confirm healing of vaginal stitches. - Anticipate resolution of palpable stitch knot by approximately 45 days post-surgery. - Educate patient on: ? Expected continuation of normal vaginal discharge. ? Absence of menstrual bleeding. ? Unchanged sexual function (after clearance).
== END 2025-03-23 09:38 | disposition home or self-care (01) ==
LOC: HODSOBC 09:12
PROVIDERS: PCP Obstetrics & Gynecology; Referring Provider Obstetrics & Gynecology; Supervising Provider Obstetrics & Gynecology; Visit Provider Obstetrics & Gynecology
DX: T81.41XA Infection following a procedure, superficial incisional surgical site, initial encounter (principal); Z87.891 Personal history of nicotine dependence; Z90.710 Acquired absence of both cervix and uterus; Z87.42 Personal history of other diseases of the female genital tract; Y83.6 Removal of other organ (partial) (total) as the cause of abnormal reaction of the patient, or of later complication, without mention of misadventure at the time of the procedure
CPT/HCPCS: 99213; G0463

== ENCOUNTER 2025-04-12 14:02 | Outpatient (AMB) | payer MEDICAID, SELFPAY ==
[2025-04-12 14:29] VITALS: BP 121/87; PULSE 64; RESP 14; TEMP 36.7; O2SAT 97; BMI 38.0
--- NOTE | 2025-04-12 14:29 | AMB.GYNCLNOT ---
Vital Signs 04/12/25 14:29 Height 1.57 m Height Method Stated Weight 94.432 kg Weight Measurement Method Standing Scale BMI 38.0 BP 121/87 H Blood Pressure Source Automatic Cuff Blood Pressure Location Left Upper Arm Position Sitting Respiration 14 Pulse 64 Pulse Source Monitor Temp 98.1 F Temp Source Oral Pulse Oximetry (%) 97 Oxygen Delivery Method Room Air Allergies/Home Meds Allergies & Medications Allergies acetaminophen (From Tylenol-Codeine #3) Allergy (Verified 04/12/25 14:30) Rash codeine (From Tylenol-Codeine #3) Allergy (Verified 04/12/25 14:30) Rash Medication Reconciliation cyclobenzaprine 5 mg tablet 5 mg PO TID PRN Spasms 01/05/24 [History Confirmed 04/12/25] pregabalin 75 mg capsule 75 mg PO BID 01/05/24 [History Confirmed 04/12/25] ALBUTEROL NEBULIZER 2.5 mg INH QID 03/02/25 [History Confirmed 04/12/25] albuterol sulfate 90 mcg/actuation breath activated powder inhaler 2 inh inhalation QID PRN shortness of breath or wheezing 03/02/25 [History Confirmed 04/12/25] budesonide-formoterol HFA 80 mcg-4.5 mcg/actuation aerosol inhaler (Breyna) 2 inh inhalation BID 03/02/25 [History Confirmed 04/12/25] paroxetine HCl 30 mg tablet 30 mg PO QDAY 03/02/25 [History Confirmed 04/12/25] pantoprazole 40 mg tablet,delayed release 40 mg PO QDAY 30 days #30 tabs 03/04/25 [Rx Confirmed 04/12/25] Intake Visit Data Collection New Patient or Established: Established Patient (seen at [facility] within 3 years) Reason for Visit:: POST OP FOLLOW UP 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 Discussed the benefits of quitting smoking with patient. Encouraged patient to quit smoking and provided Cessation assistance materials and resources. 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 1. Little interest or pleasure in doing things: not at all 2. Feeling down, depressed, or hopeless: not at all Total score: 0 PHQ-9 3. Trouble falling or staying asleep, or sleeping too much: Not at all 4. Feeling tired or having little energy: Not at all 5. Poor appetite or overeating: Not at all 6. Feeling bad about yourself - or that you are a failure or have let yourself or your family down: Not at all 7. Trouble concentrating on things, such as reading the newspaper or watching television: Not at all 8. Moving or speaking so slowly that other people could have noticed? - Or the opposite - being so fidgety or restless that you have been moving around a lot more than usual: not at all 9. Thoughts that you would be better off or of hurting yourself in some way: Not at all Total score: 0 Source: Developed by Drs. Indio Haskins, Loreta Crooks, Darryn Mcdonald and colleagues, with an educational jamal from [employer]. Depression screen completed yes Social History Living Situation History Lives With: Family Housing: House Tobacco History Smoking Status: Current every day smoker Packs per Day: 0.25 Second Hand Smoke Exposure: Yes Alcohol History Alcohol Intake: Current Alcohol Intake Frequency: holidays/special occasions only Domestic Abuse History Do You Feel Safe at Home: Yes History of Present Illness HPI Narrative Patient reports overall good recovery following a total abdominal hysterectomy performed on March 03, 2025, approximately 1 month and 10 days ago. She mentions experiencing an occasional little tug sensation, which is intermittent and resolves quickly. The patient states, Okay, just like that, now I'm fine. She does not report any other bothersome symptoms or issues with her recovery. She indicates that she has been following postoperative instructions and engaging in normal activities. The patient does not mention any issues with treatment adherence or any recent healthcare interactions beyond this follow-up visit. She had a total abdominal hysterectomy on March 03, 2025. Reports occasional tugging sensation in the musculoskeletal system. Exam General General Appearance: alert, in no apparent distress and healthy appearing Head Head exam: atraumatic Neck Neck exam: Present normal inspection and trachea midline Chest Chest inspection: Present normal inspection and symmetric chest wall rise External exam: Present normal external exam; Absent tenderness Neuro Neurological exam: Present oriented X3 Psych Psychiatric exam: Present normal affect and normal mood Office Procedures OB Clinic LOC & Office Proc's Nursing/Assessment Patient Status: Established Patient OB Clinic Nursing Assessment: Medication Reconciliation, Update PMH in EMR and Vital Signs OB Clinic Coordination of Care: Complex Care and Chronic Disease 1-5, Consent,records obtained, informed consent, Education Simp Pt/Fam, Lab and Imaging orders, Results/Orders obtained and Staff clarify orders Established Patient Charge Established Patient Point Assignment: 105 Established Patient Point Charge: EP Level 3 (80-115) Assessment & Plan Diagnosis / Problem List (1) Encounter for surgical aftercare following surgery on the genitourinary system: Status: Acute Plan Status post total abdominal hysterectomy: - Patient recovering well from total abdominal hysterectomy performed on March 03, 2025. - Reports occasional tugging sensation, expected as part of normal healing process. - No other concerns or complications reported. - Incision site appears to be healing appropriately. Plan: - Cleared for return to normal activities. - Follow-up appointment in 6 months for routine exam. - Patient instructed to call if any issues arise before next appointment. - Ovaries were preserved during surgery, reducing likelihood of immediate menopause symptoms. - Discussed possibility of prescribing medication if menopause symptoms develop in the future.
== END 2025-04-12 14:42 | disposition home or self-care (01) ==
LOC: HODSOBC 14:02
PROVIDERS: Supervising Provider Obstetrics & Gynecology; Visit Provider Obstetrics & Gynecology
DX: Z48.816 Encounter for surgical aftercare following surgery on the genitourinary system (principal); Z90.710 Acquired absence of both cervix and uterus
CPT/HCPCS: 99213; G0463